=== PATIENT | female | born 1940 | race African-American/Black ===

== ENCOUNTER 2023-11-17 09:30 | Day surgery (SDC) | payer BC ==
[~2023-11-17] VITALS: Ht 149.9 cm; Wt 79.4 kg
[2023-11-17] MEDS ORDERED: HEPARIN SODIUM,PORCINE 10,000 UNIT/ML VIAL ONE (11:55)
[2023-11-17] MEDS ORDERED: NS IRRIG SOLN 1000 ML IR ONE (11:55)
[2023-11-17] MEDS ORDERED: KETOROLAC TROMETHAMINE 30 MG VIAL ONE (11:55)
[2023-11-17] MEDS ORDERED: fentaNYL CITRATE/PF 100 MCG/2 ML AMP ONE (11:55)
[2023-11-17] MEDS ORDERED: ONDANSETRON HCL 4 MG/2 ML VIAL ONE (11:55)
[2023-11-17] MEDS ORDERED: LR 1,000 ML IV.SOLN IV ONE (11:55)
[2023-11-17] MEDS ORDERED: MIDAZOLAM HCL 2 MG/2 ML VIAL (VERSED) ONE (11:55)
[2023-11-17] MEDS ORDERED: METOCLOPRAMIDE HCL 10 MG/2 ML VIAL ONE (11:55)
[2023-11-17] MEDS ORDERED: NS 100 ML BAG ONE (11:55)
[2023-11-17] MEDS ORDERED: LIDOCAINE 1% 10 MG/ML, 20 ML MDV ONE (11:55)
[2023-11-17] MEDS ORDERED: WATER FOR IRRIGATION,STERILE 1,000 ML IRRIG.SOLN IR ONE (11:55)
[2023-11-17] MEDS ORDERED: CEFAZOLIN 2 GM IVPB PREMIX 50 ML IV ONE (12:02)
[2023-11-17] MEDS ORDERED: ONDANSETRON HCL 4 MG/2 ML VIAL IVP PRN ×2 (13:15→13:30)
[2023-11-17] MEDS ORDERED: LR 1,000 ML IV SCH (13:15)
[2023-11-17] MEDS ORDERED: HYDR-3917 PO (13:27)
[2023-11-17] MEDS ORDERED: MORPHINE 4 MG INJ. 4 MG/ML VIAL IVP PRN (13:30)
[2023-11-17] MEDS ORDERED: HYDROcodone/ACETAMIN 7.5-325 MG TAB PO PRN (13:30)
[2023-11-17 13:56] VITALS: O2SAT 97
[2023-11-17 16:13] VITALS: BP_SYST 112; PULSE 84; RESP 19
== END 2023-11-17 15:50 | disposition home or self-care (01) ==
LOC: SDS 09:30 → SMU 09:30 → SDS 15:50
PROVIDERS: ATTEND Surgery
DX: C56.9 Malignant neoplasm of unspecified ovary (principal); I10 Essential (primary) hypertension; E78.5 Hyperlipidemia, unspecified; Z90.710 Acquired absence of both cervix and uterus; Z88.5 Allergy status to narcotic agent; Z95.0 Presence of cardiac pacemaker; Z79.899 Other long term (current) drug therapy
CPT/HCPCS: 87081; 36561; 71045; 77001; J0690; J1644; J1885; J2003; J2765; J2250; J2405; J3010; J7120; C1788; 76000; 76001

== ENCOUNTER 2023-11-17 19:12 | Emergency (ER) | payer BC, MEDICAID ==
[~2023-11-17] VITALS: Ht 149.9 cm; Wt 32.7 kg
[~2023-11-17 19:12] MED LIST: HYDR-3917 PO
[2023-11-17 19:24] VITALS: BP_SYST 158; PULSE 87; RESP 18; TEMP 98; O2SAT 97
== END 2023-11-17 20:34 | disposition home or self-care (01) ==
LOC: SED 19:12
DX: Z45.2 Encounter for adjustment and management of vascular access device (principal); Z85.43 Personal history of malignant neoplasm of ovary; Z88.5 Allergy status to narcotic agent; Z79.899 Other long term (current) drug therapy
CPT/HCPCS: 71045; 99283

== ENCOUNTER 2023-11-26 13:30 | Observation (INO) | payer BC, MEDICAID ==
[~2023-11-26] VITALS: Ht 149.9 cm; Wt 77.6 kg
[2023-11-26 13:36] VITALS: BP_SYST 177; PULSE 77; RESP 18; TEMP 98.5; O2SAT 97
[2023-11-26 16:41] LABS: BASOPHILS % (AUTO) 0.1 % (0.0-2.0); HEMATOCRIT 34.9 % (36-48); HEMOGLOBIN 12.2 g/dL (12.0-16.0); LYMPHOCYTES # (AUTO) 0.7 K/uL (1.0-5.5); LYMPHOCYTES % (AUTO) 9.8 % (20.5-51.5); MEAN CORPUSCULAR HEMOGLOBIN 29 pg (27-31); MEAN CORPUSCULAR HGB CONC 35 % (32-36); MEAN CORPUSCULAR VOLUME 84 fL (79.0-98.0); MONOCYTES # (AUTO) 0.2 K/uL (0.0-1.0); MONOCYTES % (AUTO) 2.4 % (1.7-9.3); NEUTROPHILS # (AUTO) 5.9 K/uL (1.8-7.7); NEUTROPHILS % (AUTO) 87.7 % (40.0-70.0); PLATELET COUNT (AUTO) 329 K/uL (130-430); RED BLOOD CELL COUNT(AUTO) 4.17 MIL/uL (4.2-6.2); RED CELL DISTRIBUTION WIDTH 16.1 % (9.0-15.0); WHITE BLOOD COUNT (AUTO) 6.8 K/uL (4.8-10.8)
[2023-11-26 17:08] LABS: ANION GAP 10 (5-15); CALCIUM 10.4 mg/dL (8.4-11.0); CARBON DIOXIDE 27 mmol/L (23-29); CHLORIDE 104 mmol/L (98-107); GLUCOSE 115 mg/dL (74-106); POTASSIUM 4.1 mmol/L (3.5-5.1); SODIUM SERUM 141 mmol/L (136-145); UREA NITROGEN, BLOOD 11 mg/dL (8-21)
[2023-11-26] MEDS ORDERED: ATOR40TA68 PO (21:43)
[2023-11-26] MEDS ORDERED: FLUT16SP16 NS (21:43)
[2023-11-26] MEDS ORDERED: CLOP75TA32 PO (21:43)
[2023-11-26] MEDS ORDERED: SPIR25TA6 PO (21:43)
[2023-11-26] MEDS ORDERED: VALS160T29 PO (21:43)
[2023-11-26 22:30] VITALS: BP_SYST 157; PULSE 65; RESP 18; TEMP 98.5
[2023-11-26] MEDS ORDERED: HYDROmorphone 1 MG/ML INJ. CARTRIDGE IVP ONE (22:45)
[2023-11-26] MEDS ORDERED: HYDROcodone/ACETAMIN 5-325 MG TAB (NORCO/ VICODIN) PO PRN (22:45)
[2023-11-26 23:00] VITALS: O2SAT 96
[2023-11-26] MEDS ORDERED: traMADol HCL HCL 50 MG TABLET (ULTRAM) PO PRN (23:00)
[2023-11-27] MEDS: ACETAMINOPHEN 325 MG TABLET PO PRN (00:06)
[2023-11-27 00:40] VITALS: BP_SYST 143; PULSE 65; RESP 18; TEMP 97; O2SAT 99
[2023-11-27 07:38] LABS: BILIRUBIN,URINE NEGATIVE (NEGATIVE); BLOOD, URINE NEGATIVE (NEGATIVE); CLARITY/URINE CLEAR (CLEAR); COLOR,URINE YELLOW (YELLOW); GLUCOSE,URINE NEGATIVE (NEGATIVE); KETONES,URINE NEGATIVE (NEGATIVE); LEUKOCYTE ESTERASE ,URINE NEGATIVE (NEGATIVE); NITRITE, URINE NEGATIVE (NEGATIVE); PROTEIN URINE NEGATIVE (NEGATIVE); UROBILINOGEN,URINE 0.2 (0.2-1.0)
[2023-11-27 08:30] VITALS: BP_SYST 130; PULSE 82; RESP 17; TEMP 98; O2SAT 96
[2023-11-27] MEDS: LOSARTAN POTASSIUM 50 MG TABLET (COZAAR) PO SCH (09:00)
[2023-11-27] MEDS ORDERED: VALSARTAN Non-Formulary 160 MG TABLET PO SCH (09:00)
[2023-11-27 11:21] LABS: INR 1.1 (0.8-1.2); PROTHROMBIN TIME 11.4 SECS (9.5-12.5)
[2023-11-27 12:51] VITALS: BP_SYST 144; PULSE 68; RESP 16; TEMP 97.6; O2SAT 96
[2023-11-27 16:57] VITALS: BP_SYST 125; PULSE 64; RESP 18; TEMP 97.8; O2SAT 99
[2023-11-27] MEDS ORDERED: ONDANSETRON HCL 4 MG/2 ML VIAL ONE (18:05)
[2023-11-27] MEDS ORDERED: LIDOCAINE 1% 10 MG/ML, 20 ML MDV ONE (18:05)
[2023-11-27] MEDS ORDERED: LR 1,000 ML IV.SOLN IV ONE (18:05)
[2023-11-27] MEDS ORDERED: fentaNYL CITRATE/PF 100 MCG/2 ML AMP ONE (18:05)
[2023-11-27] MEDS ORDERED: WATER FOR IRRIGATION,STERILE 1,000 ML IRRIG.SOLN IR ONE (18:05)
[2023-11-27] MEDS ORDERED: MIDAZOLAM HCL 5 MG/5 ML VIAL ONE (18:05)
[2023-11-27] MEDS ORDERED: METOCLOPRAMIDE HCL 10 MG/2 ML VIAL ONE (18:05)
[2023-11-27] MEDS ORDERED: NS IRRIG SOLN 1000 ML IR ONE (18:05)
[2023-11-27] MEDS ORDERED: KETOROLAC TROMETHAMINE 30 MG VIAL ONE (18:05)
[2023-11-27] MEDS ORDERED: ONDANSETRON HCL 4 MG/2 ML VIAL IVP PRN (19:45)
[2023-11-27 20:30] VITALS: BP_SYST 121; PULSE 60; RESP 18; TEMP 97.6; O2SAT 97
[2023-11-27] MEDS: LR 1,000 ML IV SCH (23:00)
[2023-11-28] VITALS: BP_SYST 130; PULSE 63; RESP 16; TEMP 97.7; O2SAT 97
[2023-11-28 09:06] VITALS: BP_SYST 120; PULSE 69; RESP 18; TEMP 97.9; O2SAT 99
[2023-11-28 11:07] VITALS: BP_SYST 112; PULSE 68; RESP 14; TEMP 97.3; O2SAT 100
[2023-11-28] MEDS ORDERED: CEPH250C PO (16:09)
[2023-11-28 16:36] VITALS: BP_SYST 109; PULSE 66; RESP 14; TEMP 97.6; O2SAT 100
[2023-11-28 16:57] VITALS: BP_SYST 109; PULSE 66; RESP 18; TEMP 97.6; O2SAT 98
== END 2023-11-28 19:30 | disposition home or self-care (01) ==
LOC: SED 13:30 → STU 18:29
PROVIDERS: ADMIT Specialist; ATTEND Specialist
DX: T82.524A Displacement of infusion catheter, initial encounter (principal); L03.313 Cellulitis of chest wall; C56.9 Malignant neoplasm of unspecified ovary; I10 Essential (primary) hypertension; E78.5 Hyperlipidemia, unspecified; Y83.9 Surgical procedure, unspecified as the cause of abnormal reaction of the patient, or of later complication, without mention of misadventure at the time of the procedure; Y92.89 Other specified places as the place of occurrence of the external cause
CPT/HCPCS: 80048; 83880; 85025; 84484; 36415 ×2; 93005 ×2; 71045 ×2; 99285; 36590; 81001; 85610; 86886; 86900; 86901; 87081; 87070; 87075; 81003; G0378 ×3; J1885; J2003; J2765; J2250; J2405; J3010; J7120; C1751